=== PATIENT | male | born 1935 | race Caucasian/White ===

== ENCOUNTER → 2016-12-10 | Outpatient (CLI) | payer MEDICARE ==
--- NOTE | 2016-12-10 16:25 | MRI ---
EXAM DESCRIPTION: Brain w/wo Contrast CLINICAL HISTORY: GAIT PROBLEMS. Abnormal gait. Dizziness. Visual disturbances in the right eye. COMPARISON: CT head 10/13/2015. MRI brain 03/21/2012 TECHNIQUE: Pre and postcontrast MRI of the brain is performed according to our usual protocol including multiplanar multi sequence technique. FINDINGS: No hemorrhage, mass effect, diffusion restriction, or acute infarction is present. There is normal configuration of the ventricles and sulci. Moderate generalized volume loss is present. Minimal patchy T2/FLAIR hyperintensities in the supratentorial white matter. There is no abnormal parenchymal or leptomeningeal enhancement. No abnormal extra-axial fluid collections are present. Normal flow voids are present. The calvarium is intact. Trace left mastoid fluid. 1 cm left maxillary mucous retention cyst or polyp. IMPRESSION: 1. No acute intracranial abnormality. 2. Moderate volume loss. 3. Minimal chronic microangiopathy. Electronically signed by: Johnie Schwartz MD 12/10/2016 4:24 PM CDT
== END | disposition home or self-care (01) ==
LOC: MRI 08:20
DX: R26.9 Unspecified abnormalities of gait and mobility (principal); Z79.899 Other long term (current) drug therapy; H53.9 Unspecified visual disturbance

== ENCOUNTER → 2016-12-31 | Outpatient (CLI) | payer MEDICARE | END | disposition home or self-care (01) | LOC: YCHH 09:30 | PROVIDERS: ATTEND Family Medicine | DX: G20 Parkinson's disease (principal); D64.9 Anemia, unspecified; N18.9 Chronic kidney disease, unspecified; E78.5 Hyperlipidemia, unspecified; I12.9 Hypertensive chronic kidney disease with stage 1 through stage 4 chronic kidney disease, or unspecified chronic kidney disease ==

== ENCOUNTER → 2017-06-17 | Outpatient (CLI) | payer MEDICARE | LOC: LAB.O 09:56 | PROVIDERS: ATTEND Family Medicine | DX: N39.0 Urinary tract infection, site not specified (principal) ==

== ENCOUNTER → 2017-07-01 | Outpatient (CLI) | payer MEDICARE | LOC: YCHH 09:16 | PROVIDERS: ATTEND Family Medicine | DX: E78.5 Hyperlipidemia, unspecified (principal); N18.9 Chronic kidney disease, unspecified; D64.9 Anemia, unspecified; G20 Parkinson's disease ==

== ENCOUNTER → 2017-11-15 | Outpatient (CLI) | payer MEDICARE | LOC: YCHH 09:09 | PROVIDERS: ATTEND Family Medicine | DX: I10 Essential (primary) hypertension (principal); R68.89 Other general symptoms and signs ==

== ENCOUNTER 2017-12-25 13:14 | Emergency (ER) | payer MEDICARE ==
--- NOTE | 2017-12-25 15:58 | ED.PDOC ---
History of Present Illness - General Chief Complaint: Skin/Abrasion/Tear Stated Complaint: laceration 5th digit Time Seen by Provider: 12/25/17 15:57 Source: patient Exam Limitations: no limitations - History of Present Illness Initial Comments: Shiv Lilly 82 y/o male brought by toe er after he tried to open and pulled his door he got off balance then slipped and fell landing on his right little finger sustaining laceration.Noted bleeding on his 5th digit.Denies head, neck,shoulder hips ,wrist, elbow pains. Timing/Duration: just prior to arrival Severity: moderate Location: extremities - right hand 5th digit Improving Factors: rest Worsening Factors: movement Associated Symptoms: denies symptoms Allergies/Adverse Reactions: Allergies NO KNOWN ALLERGY Allergy (Verified 10/13/15 09:13) Home Medications: Ambulatory Orders Blood Pressure Pill DAILY 10/13/15 Cephalexin [Keflex] 500 mg PO QID #28 cap 10/13/15 Ginkgo Biloba 30 mg PO DAILY 10/13/15 Wyand[place]-3 Fatty Acids [Fish Oil] 1 cap PO DAILY 10/13/15 Review of Systems - Review of Systems Constitutional: States: no symptoms reported EENTM: States: no symptoms reported Respiratory: States: no symptoms reported Cardiology: States: no symptoms reported Gastrointestinal/Abdominal: States: no symptoms reported Genitourinary: States: no symptoms reported Musculoskeletal: States: no symptoms reported Skin: States: see HPI Neurological: States: no symptoms reported Past Medical History (General) - Patient Medical History Hx Stroke: No Hx Asthma: No Hx Hypertension: Yes Hx Diabetes: No Hx MRSA: No Hx Other PMH: Yes - [place] - Vaccination History Hx Tetanus, Diphtheria Vaccination: No Hx Influenza Vaccination: Yes Hx Pneumococcal Vaccination: No - Social History Hx Tobacco Use: No Family Medical History - Family History Father Family History: Unknown Living Status: Physical Exam - Physical Exam General Appearance: Alert, Comfortable, No apparent distress Eyes, Ears, Nose, Throat Exam: PERRL/EOMI, normal ENT inspection Neck: non-tender, full range of motion, supple, normal inspection Cardiovascular/Chest: normal peripheral pulses, regular rate, rhythm, no murmur Respiratory: chest non-tender, lungs clear, normal breath sounds, no respiratory distress Gastrointestinal/Abdominal: normal bowel sounds, non tender, soft, no organomegaly Back Exam: normal inspection, no CVA tenderness Extremity: no pedal edema, no calf tenderness Neurologic: no motor/sensory deficits, alert, oriented x 3 Skin Exam: warm/dry, normal color Skin Problem Location: upper extremities - right 5th digit Skin Character: other - laceration U shaped volar aspect extending to ulnar side of finger Progress - Progress Progress: 12/25/17 16:55 Vital Signs - 8 hr 12/25/17 13:34 Temperature 97.5 F L Pulse Rate [ 79 left brachial] Respiratory 20 Rate Blood Pressure 159/91 [right brachial ] O2 Sat by Pulse 96 Oximetry 12/25/17 17:07 Declined x- ray on his finger wants to go home. Procedures - Laceration/Wound Repair Right Volar Finger Wound Length (cm): 4 - 5th digit Wound's Depth, Shape: flap Wound Explored: no foreign body removed Irrigated w/ Saline (cc's): 30 Betadine Prep?: No - hibiclens Anesthesia: 1% Lidocaine Volume Anesthetic (cc's): 8 Wound Repaired With: sutures Suture Size/Type: 4:0, nylon Number of Sutures: 9 Layer Closure?: No Sterile Dressing Applied?: Yes Departure - Departure Clinical Impression: Fall at home Qualifiers: Encounter type: initial encounter Qualified Code(s): W19.XXXA - Unspecified fall, initial encounter Laceration of finger of right hand without foreign body Qualifiers: Encounter type: initial encounter Finger: little finger Damage to nail status: without damage Qualified Code(s): S61.216A - Laceration without foreign body of right little finger without damage to nail, initial encounter Time of Disposition: 16:58 Disposition: Discharge to Home or Self Care Condition: Fair Departure Forms: ED Discharge - Pt. Copy, Patient Portal Self Enrollment Instructions: Wound Care (DC), Laceration Repair With Stitches (DC), Common Finger Injuries (DC) Referrals: Marko Moy MD [Primary Care Provider] - 1-2 Weeks Home Medications: Ambulatory Orders Blood Pressure Pill DAILY 10/13/15 Cephalexin [Keflex] 500 mg PO QID #28 cap 10/13/15 Ginkgo Biloba 30 mg PO DAILY 10/13/15 Wy[place]-3 Fatty Acids [Fish Oil] 1 cap PO DAILY 10/13/15 Additional Instructions: Removal of sutures 2017 [facility] ER replaced wound dressing after 5 days unless it gets wet or dirty need to change VIRGIE;Return to er as needed
[2017-12-25] MEDS ORDERED: CHLORHEXIDINE GLUCONATE 4 % 15 ML UD TOP ONE (16:01)
[2017-12-25] MEDS ORDERED: LIDOCAINE 1% 10 ML VIAL INJ ONE (16:01)
[2017-12-25] MEDS ORDERED: TETANUS,DIPHTHERIA,PERTUSSIS 1 EA SYG IM ONE (16:03)
[2017-12-25] MEDS ORDERED: NEOMYCIN-BACITRACIN-POLYMYXIN 0.9 GM UD TOP ONE (16:38)
[2017-12-25 17:45] VITALS: BP 146/84; TEMP 97; O2SAT 97
== END 2017-12-25 17:20 | disposition home or self-care (01) ==
LOC: ER 13:14
DX: S61.216A Laceration without foreign body of right little finger without damage to nail, initial encounter (principal); G20 Parkinson's disease; I10 Essential (primary) hypertension; Z23 Encounter for immunization; Z79.899 Other long term (current) drug therapy; W01.0XXA Fall on same level from slipping, tripping and stumbling without subsequent striking against object, initial encounter; Y92.009 Unspecified place in unspecified non-institutional (private) residence as the place of occurrence of the external cause

== ENCOUNTER → 2018-02-21 | Outpatient (CLI) | payer MEDICARE | LOC: YCHH 09:58 | PROVIDERS: ATTEND Family Medicine | DX: E78.2 Mixed hyperlipidemia (principal); R79.89 Other specified abnormal findings of blood chemistry; D64.9 Anemia, unspecified ==

== ENCOUNTER → 2018-05-30 | Outpatient (CLI) | payer MEDICARE | LOC: GMAH 10:42 | PROVIDERS: ATTEND Family Medicine | DX: I10 Essential (primary) hypertension (principal); Z12.5 Encounter for screening for malignant neoplasm of prostate | CPT/HCPCS: 84443; 84550; G0103 ==

== ENCOUNTER 2018-07-05 15:05 | Emergency (ER) | payer MEDICARE ==
[2018-07-05] MEDS ORDERED: CHLORHEXIDINE GLUCONATE 4 % 15 ML UD TOP ONE (15:21)
[2018-07-05] MEDS ORDERED: LIDOCAINE 1% 10 ML VIAL INJ ONE (15:21)
[2018-07-05] MEDS ORDERED: NEOMYCIN-BACITRACIN-POLYMYXIN 0.9 GM UD TOP ONE (15:56)
[2018-07-05] MEDS ORDERED: AMOXICILLIN & POT CLAVULANATE 875 MG TAB PO ONE (15:59)
--- NOTE | 2018-07-05 16:02 | ED.PDOC ---
History of Present Illness - General Chief Complaint: Upper Extremity Injury Stated Complaint: laceration to right 5th finger Time Seen by Provider: 07/05/18 15:26 Source: patient, family Exam Limitations: no limitations - History of Present Illness Initial Comments: PT PRESENTS WITH LACERATION TO THE RIGHT 5TH DIGIT AFTER GRABBING ONTO A DOOR HANDLE TO KEEP FROM FALLING. Occurred: just prior to arrival Pain - Upper Extremity: mild: Hand, right Method of Injury: other - LACERATION Improving Factors: nothing Worsening Factors: nothing Allergies/Adverse Reactions: Allergies NO KNOWN ALLERGY Allergy (Verified 07/05/18 15:25) Home Medications: Ambulatory Orders Edwards-3 Fatty Acids [Fish Oil] 1 cap PO DAILY 10/13/15 Amoxicillin & Pot Clavulanate [Augmentin] 875 mg PO BID 5 Days #10 tab 07/05/18 Carbidopa-Levodopa [Sinemet] 1 tab PO TID 07/05/18 Cyanocobalamin [Vitamin B12] 1,000 mcg PO DAILY 07/05/18 Lisinopril 10 mg PO DAILY 07/05/18 Magnesium Hydroxide [Milk Of Magnesia] 30 ml PO PRN PRN 07/05/18 Multiple Vitamin [Multi Vitamin] 1 tab PO DAILY 07/05/18 Review of Systems - Review of Systems Constitutional: Denies: chills, fever Cardiology: Denies: chest pain, syncope Gastrointestinal/Abdominal: Denies: nausea, vomiting Musculoskeletal: Denies: joint pain, joint swelling Past Medical History (General) - Patient Medical History Hx Stroke: No Hx Asthma: No Hx Hypertension: Yes Hx Diabetes: No Hx MRSA: No Surgical History: appendectomy - Vaccination History Hx Tetanus, Diphtheria Vaccination: Yes Hx Influenza Vaccination: Yes Hx Pneumococcal Vaccination: Yes Immunizations Up to Date: Yes - Social History Hx Tobacco Use: No Hx Alcohol Use: No Hx Substance Use: No Hx Substance Use Treatment: No Hx Depression: No Family Medical History - Family History Father Family History: Unknown Living Status: Physical Exam - Physical Exam General Appearance: Alert, No apparent distress, Well Developed, Well Groomed, Well Hydrated Eyes, Ears, Nose, Throat Exam: normal ENT inspection Cardiovascular/Respiratory: no respiratory distress Elbow/Forearm Exam: normal inspection, non-tender, no evidence of injury Wrist Exam: normal inspection, non-tender, no evidence of injury Hand Exam: laceration - L SHAPED, 4.5CM LACERATION TO THE VOLAR ASPECT OF THE RIGHT 5TH DIGIT. EXTENSOR AND FLEXOR TENDON FUNCTION INTACT. NV INTACT DISTALLY. Neuro/Tendon: normal sensation, normal motor functions, normal tendon functions, responds to pain Mental Status: alert Skin Exam: normal color, warm/dry Procedures - Laceration/Wound Repair Right Finger Wound Length (cm): 4.5 Wound's Depth, Shape: flap Wound Explored: clean Irrigated w/ Saline (cc's): 250 Betadine Prep?: Yes Anesthesia: 1% Lidocaine Volume Anesthetic (cc's): 3 - DIGITAL BLOCK Wound Repaired With: sutures Suture Size/Type: 4:0, prolene Number of Sutures: 8 Layer Closure?: No Splint Applied?: Yes - ALUMINUM FINGER SPLINT Departure - Departure Clinical Impression: Laceration of finger of right hand without foreign body Time of Disposition: 16:05 Disposition: Discharge to Home or Self Care Condition: Good Departure Forms: ED Discharge - Pt. Copy, Patient Portal Self Enrollment Instructions: Laceration Repair With Stitches (DC), Common Finger Injuries (DC) Referrals: Marko Moy MD [Primary Care Provider] - 1 Week Prescriptions: Amoxicillin & Pot Clavulanate [Augmentin] 875 mg PO BID 5 Days #10 tab Home Medications: Ambulatory Orders Edwards-3 Fatty Acids [Fish Oil] 1 cap PO DAILY 10/13/15 Amoxicillin & Pot Clavulanate [Augmentin] 875 mg PO BID 5 Days #10 tab 07/05/18 Carbidopa-Levodopa [Sinemet] 1 tab PO TID 07/05/18 Cyanocobalamin [Vitamin B12] 1,000 mcg PO DAILY 07/05/18 Lisinopril 10 mg PO DAILY 07/05/18 Magnesium Hydroxide [Milk Of Magnesia] 30 ml PO PRN PRN 07/05/18 Multiple Vitamin [Multi Vitamin] 1 tab PO DAILY 07/05/18 Additional Instructions: RETURN TO ED OR PCP IN 7-10 DAYS FOR SUTURE REMOVAL.
[2018-07-05 16:26] VITALS: BP 116/72; TEMP 95.2; O2SAT 95
== END 2018-07-05 16:20 | disposition home or self-care (01) ==
LOC: ER 15:05
DX: S61.216A Laceration without foreign body of right little finger without damage to nail, initial encounter (principal); I10 Essential (primary) hypertension; W45.8XXA Other foreign body or object entering through skin, initial encounter; Y92.9 Unspecified place or not applicable

== ENCOUNTER → 2018-08-23 | Outpatient (CLI) | payer MEDICARE | LOC: YCHH 09:23 | PROVIDERS: ATTEND Family Medicine | DX: N18.9 Chronic kidney disease, unspecified (principal); D64.9 Anemia, unspecified ==

== ENCOUNTER → 2018-11-28 | Outpatient (CLI) | payer MEDICARE | LOC: YCHH 09:12 | PROVIDERS: ATTEND Family Medicine | DX: G20 Parkinson's disease (principal); R79.89 Other specified abnormal findings of blood chemistry; E78.5 Hyperlipidemia, unspecified; R94.5 Abnormal results of liver function studies; D64.9 Anemia, unspecified ==

== ENCOUNTER → 2019-04-12 | Outpatient (CLI) | payer MEDICARE, OTHER | LOC: YCHH 09:42 | PROVIDERS: ATTEND Family Medicine | DX: N18.9 Chronic kidney disease, unspecified (principal); E78.5 Hyperlipidemia, unspecified; K74.60 Unspecified cirrhosis of liver; D64.9 Anemia, unspecified ==

== ENCOUNTER 2019-05-20 14:45 | Emergency (ER) | payer OTHER ==
[2019-05-20] MEDS ORDERED: SODIUM CHLORIDE 0.9% (FLUSH) 10 ML SYG IV PRN ×2 (15:05→15:07)
[2019-05-20] MEDS ORDERED: SODIUM CHLORIDE 0.9% 1000ML 1,000 ML IVS ONE ×2 (15:29→18:21)
--- NOTE | 2019-05-20 16:08 | RAD ---
EXAM DESCRIPTION: XR Chest,1 View CLINICAL HISTORY: sob TECHNIQUE: Single frontal view of the chest is submitted. COMPARISON: None available for comparison FINDINGS: Heart: The cardiothoracic silhouette is borderline prominent. Lungs: Central pulmonary vascular and interstitial prominence and patchy bilateral perihilar and basilar opacities. Mediastinum: Thoracic aortic atherosclerosis. Calcified mediastinal and hilar lymph nodes. Pleura: No appreciable effusion. No pneumothorax. Bones: Mild multilevel spondylosis. Well-corticated deformity and shortening of the distal left clavicle possibly posttraumatic and/or postsurgical. Upper abdomen: Unremarkable IMPRESSION: Findings which may be related to pulmonary congestion. Superimposed infection not excluded. Electronically signed by: Kati Silver MD 05/20/2019 4:06 PM ORGANIZATIONAL PSYCHOLOGIST
--- NOTE | 2019-05-20 16:38 | ED.PDOC ---
History of Present Illness - General Chief Complaint: General Stated Complaint: Generalized weakness and SOB x one month Time Seen by Provider: 05/20/19 15:04 - History of Present Illness Initial Comments: c/o generalized weakness for few weeks associated with some sob , gradually getting worse , unable to get out of bed today so was brought over here , no chest pain or palpitation or focal weakness Improving Factors: nothing Worsening Factors: nothing Associated Symptoms: weakness Allergies/Adverse Reactions: Allergies NO KNOWN ALLERGY Allergy (Verified 07/05/18 15:25) Home Medications: Ambulatory Orders Arpin-3 Fatty Acids [Fish Oil] 1 cap PO DAILY 10/13/15 Amoxicillin & Pot Clavulanate [Augmentin] 875 mg PO BID 5 Days #10 tab 07/05/18 Carbidopa-Levodopa [Sinemet] 1 tab PO TID 07/05/18 Cyanocobalamin [Vitamin B12] 1,000 mcg PO DAILY 07/05/18 Lisinopril 10 mg PO DAILY 07/05/18 Magnesium Hydroxide [Milk Of Magnesia] 30 ml PO PRN PRN 07/05/18 Multiple Vitamin [Multi Vitamin] 1 tab PO DAILY 07/05/18 Review of Systems - Review of Systems Constitutional: States: see HPI, weakness EENTM: States: no symptoms reported Respiratory: States: short of breath Cardiology: States: no symptoms reported Gastrointestinal/Abdominal: States: no symptoms reported Genitourinary: States: no symptoms reported Musculoskeletal: States: no symptoms reported Skin: States: no symptoms reported Neurological: States: weakness Endocrine: States: no symptoms reported Hematologic/Lymphatic: States: no symptoms reported Past Medical History (General) - Patient Medical History Hx Stroke: No Hx Asthma: No Hx of COPD: No Hx Cardiac Disorders: Yes - Murmur Hx Congestive Heart Failure: No Hx Hypertension: Yes Hx Diabetes: No Hx MRSA: No Surgical History: appendectomy, tonsillectomy - Vaccination History Hx Tetanus, Diphtheria Vaccination: Yes Hx Influenza Vaccination: Yes Hx Pneumococcal Vaccination: Yes - Social History Hx Tobacco Use: Yes Hx Alcohol Use: No Hx Substance Use: No Hx Substance Use Treatment: No Hx Depression: No - Female History Patient is a Female of Child Bearing Age (10 -59 yrs old): No Patient : No Family Medical History - Family History Father Family History: Unknown Living Status: Physical Exam - Physical Exam General Appearance: Alert, Comfortable Eye Exam: bilateral normal Ears, Nose, Throat: hearing grossly normal, normal ENT inspection, normal pharynx Neck: non-tender, full range of motion, supple Respiratory: chest non-tender, lungs clear, normal breath sounds, no respiratory distress, no accessory muscle use Cardiovascular/Chest: regular rate, rhythm Back Exam: normal inspection, no CVA tenderness, no vertebral tenderness Extremity: normal range of motion, non-tender, normal inspection Neurologic: worker's compensation claims examiner II-XII nml as tested, no motor/sensory deficits, alert, normal mood/affect, oriented x 3 Skin Exam: normal color, warm/dry Progress - Progress Progress: 05/22/19 19:[address] Damon ER physician at [facility] , agreed to take the pt ,and requested to pass central line Central line was attempted once without any complication but not able to pass the line , no bleeding or any complication , air transport already here Pt X-ray was done and showed Pulmonary edema at the time of transfer , EMS assure to give lasix [address] to [address] hospital. Pt was transferrred to the hospital in stable condition with stable blood pressure - Results/Orders Results/Orders: 05/20/19 15:05 Head [CT] Stat Sodium Chloride 0.9% (Flush) [Saline Flush Syringe] 10 ml IV PRN PRN 05/20/19 15:07 Hold Metformin x 48Hrs [id number] Abdomen/Pelvis w/Contrast [CT] Stat Sodium Chloride 0.9% (Flush) [Saline Flush Syringe] 10 ml IV PRN PRN URINALYSIS Stat 05/20/19 15:15 EKG STAT 05/20/19 16:34 LACTIC ACID Stat Laboratory Results WBC 16.4 K/mm3 (4.8-10.8) H 05/20/19 15:05 RBC 4.90 M/mm3 (4.70-6.10) 05/20/19 15:05 Hgb 15.3 gm/dL (14.0-18.0) 05/20/19 15:05 Hct 46.0 % (42.0-52.0) 05/20/19 15:05 MCV 93.9 fl (80.0-94.0) 05/20/19 15:05 MCH 31.2 pg (27.0-31.0) H 05/20/19 15:05 MCHC 33.2 g/dL (33.0-37.0) 05/20/19 15:05 RDW 14.3 % (11.5-14.5) 05/20/19 15:05 Plt Count 263 K/mm3 (130-400) 05/20/19 15:05 MPV 9.2 fl (7.40-10.4) 05/20/19 15:05 Absolute Neuts (auto) 14.20 K/uL (1.8-6.8) H 05/20/19 15:05 Absolute Lymphs (auto) 1.20 K/uL (1.0-3.4) 05/20/19 15:05 Absolute Monos (auto) 0.90 K/uL (0.2-0.8) H 05/20/19 15:05 Absolute Eos (auto) 0.00 K/uL (0.0-0.4) 05/20/19 15:05 Absolute Basos (auto) 0.10 K/uL (0.0-0.1) 05/20/19 15:05 Neutrophils % 86.6 % (42.0-78.0) H 05/20/19 15:05 Lymphocytes % 7.2 % (20.0-50.0) L 05/20/19 15:05 Monocytes % 5.4 % (2.0-9.0) 05/20/19 15:05 Eosinophils % 0.2 % (1.0-5.0) L 05/20/19 15:05 Basophils % 0.6 % (0.0-2.0) 05/20/19 15:05 Sodium 133 mmol/L (135-145) L 05/20/19 15:05 Potassium 3.9 mmol/L (3.6-5.0) 05/20/19 15:05 Chloride 98 mmol/L (101-111) L 05/20/19 15:05 Carbon Dioxide 23 mmol/L (21-31) 05/20/19 15:05 Anion Gap 15.9 (12-18) 05/20/19 15:05 BUN 34 mg/dL (7-18) H 05/20/19 15:05 Creatinine 1.17 mg/dL (0.6-1.3) 05/20/19 15:05 BUN/Creatinine Ratio 29.1 (10-20) H 05/20/19 15:05 Random Glucose 114 mg/dL (70-105) H 05/20/19 15:05 Serum Osmolality 274.9 mOsm/L (275-295) L 05/20/19 15:05 Calcium 9.2 mg/dL (8.4-10.2) 05/20/19 15:05 Total Bilirubin 1.3 mg/dL (0.2-1.0) H 05/20/19 15:05 AST 213 IU/L (10-42) H 05/20/19 15:05 ALT 21 IU/L (10-60) 05/20/19 15:05 Alkaline Phosphatase 57 IU/L (42-121) 05/20/19 15:05 Creatine Kinase 1260 IU/L (38-174) H* 05/20/19 15:05 CK-MB (CK-2) 116.8 ng/mL (0.0-4.4) H* 05/20/19 15:05 CK-MB (CK-2) % 9.27 % (0.0-3.5) H 05/20/19 15:05 Troponin I 30.22 ng/mL (0.01-0.05) H* 05/20/19 15:05 Serum Total Protein 7.1 gm/dL (6.4-8.2) 05/20/19 15:05 Albumin 3.7 g/dl (3.2-5.5) 05/20/19 15:05 Globulin 3.4 gm/dL (2.3-3.5) 05/20/19 15:05 Albumin/Globulin Ratio 1.1 (1.1-1.9) 05/20/19 15:05 Lipase 30 U/L (22-51) 05/20/19 15:07 - EKG/XRAY/CT EKG: Sinus Comments: Early repolarization CT Ordered: Yes - Additional EKG/XRAY/Consults EKG #2: LBBB Departure - Departure Clinical Impression: Left bundle branch block (LBBB), Hypotension, Pneumonia, Pulmonary edema, Hypoxemia Disposition: Transfer to Hospital Condition: Serious Departure Forms: ED Discharge - Pt. Copy, Patient Portal Self Enrollment Referrals: Reinier Teran MD [Primary Care Provider] - 1-2 Weeks Home Medications: Ambulatory Orders Arpin-3 Fatty Acids [Fish Oil] 1 cap PO DAILY 10/13/15 Amoxicillin & Pot Clavulanate [Augmentin] 875 mg PO BID 5 Days #10 tab 07/05/18 Carbidopa-Levodopa [Sinemet] 1 tab PO TID 07/05/18 Cyanocobalamin [Vitamin B12] 1,000 mcg PO DAILY 07/05/18 Lisinopril 10 mg PO DAILY 07/05/18 Magnesium Hydroxide [Milk Of Magnesia] 30 ml PO PRN PRN 07/05/18 Multiple Vitamin [Multi Vitamin] 1 tab PO DAILY 07/05/18
[2019-05-20] MEDS ORDERED: ASPIRIN TABLET 325 MG TAB PO ONE (16:43)
--- NOTE | 2019-05-20 16:50 | CT ---
EXAM DESCRIPTION: Head CLINICAL HISTORY: weakness COMPARISON: None Available. TECHNIQUE: Contiguous axial images of the brain were obtained without the administration of intravenous contrast.This exam was performed according to our departmental dose-optimization program, which includes automated exposure control, adjustment of the mA and/or kV according to patient size and/or use of iterative reconstruction technique. FINDINGS: Several images are degraded by artifact. There is no acute intracranial hemorrhage or mass effect. Areas of low attenuation in the periventricular and subcortical white matter are nonspecific but suggestive of small vessel disease. There is generalized atrophy. Ventricular system is within normal limits. There is adequate fung-white matter differentiation. There is no skull fracture. The visualized paranasal sinuses and mastoid air cells are within normal limits. There is atherosclerosis. Filling defect within the right external ear canal may represent cerumen, direct visualization recommended. IMPRESSION: No acute intracranial abnormalities. Electronically signed by: Juan A Oviedo MD 05/20/2019 4:48 PM [facility]
[2019-05-20] MEDS ORDERED: levoFLOXacin 500MG IV 500 MG in PREMIX BAG 1 BAG IVPB ONE (16:56)
--- NOTE | 2019-05-20 17:00 | CT ---
PROCEDURE: Abdomen/Pelvis w/Contrast CLINICAL HISTORY: abdominal pain TECHNIQUE: Contiguous axial images obtained through the abdomen and pelvis without IV contrast. Coronal and sagittal reformatted images were provided. This exam was performed according to our departmental dose-optimization program, which includes automated exposure control, adjustment of the mA and/or kV according to patient size and/or use of iterative reconstruction technique. COMPARISON: None available for comparison. FINDINGS: Artifacts: Motion artifact degrades image quality. Lung bases: Right greater than left basilar reticular nodular and groundglass opacities. The heart is enlarged. Coronary artery calcification. Small pericardial effusion. Liver: Unremarkable Gallbladder and biliary system: Unremarkable Pancreas: Unremarkable Spleen: Unremarkable Adrenals: Unremarkable Kidneys: Normal renal cortical enhancement. 1.4 cm cortical hypodensity at the anterior mid pole on the left. The density is mildly higher than that of a simple cyst and this may represent a hemorrhagic or proteinaceous cyst.. 1 cm cortical hypodensity at the lateral midpole on the right which cannot be fully characterized. No calculi. No hydronephrosis. Bowel: There are multiple mildly dilated small bowel loops. The course of the small bowel is difficult to follow in its entirety. Suggestion for a transition within the central mesentery. The mesentery appears twisted in this region. Fecal loading within the rectal vault. Scattered colonic diverticula without definite focally inflamed diverticulum. Appendix: The appendix is not definitively visualized. No findings to suggest acute appendicitis. Urinary bladder: Distended Reproductive: Radiation seeds in place. Lymph nodes: Top normal mesenteric lymph nodes measuring up to 11 mm in short axis. Peritoneum: Free air present within the abdomen, predominantly nondependent. No focal fluid collection. Vessels: Moderate atherosclerotic disease. The infrarenal abdominal aorta measures 3.9 cm in maximum diameter. Abdominal wall: Small bilateral fat-containing inguinal hernias. Bones: Multilevel spondylosis. No acute fracture. IMPRESSION: 1. Free air compatible with visceral perforation. The exact site is not clearly delineated. There are multiple mildly dilated small bowel loops with suggestion for a transition in the central mesentery suggestive of small bowel obstruction. The mesentery appears twisted in this location and findings are suspicious for underlying volvulus or internal hernia. 2. 3.9 cm abdominal aortic aneurysm. Recommend follow-up every 2 years. Reference: J Am Sweetie Radiol 2013;10:789-794. 3. Right greater than left basilar infiltrates. 4. Other findings as above. THIS REPORT CONTAINS FINDINGS THAT MAY BE CRITICAL TO PATIENT CARE: The findings were verbally discussed via telephone conference with Dr. Santosh GU on 05/20/2019 4:57 PM GLASS BEVELER. The results were acknowledged and understood. Electronically signed by: Kati Silver MD 05/20/2019 4:58 PM GLASS BEVELER
[2019-05-20] MEDS ORDERED: levoFLOXacin 500MG IV 100 ML IVPB ONE (17:10)
[2019-05-20] MEDS ORDERED: PIPERACILLIN/TAZOBACTAM 4.5 GM in SODIUM CHLORIDE 0.9% 100ML 100 ML IVPB ONE (18:08)
[2019-05-20] MEDS ORDERED: PIPERACILLIN/TAZOBACTAM 2.25 GM VIAL IVPB ONE (18:10)
[2019-05-20] MEDS ORDERED: SODIUM CHLORIDE 0.9% 100ML 100 ML IVPB ONE (18:10)
--- NOTE | 2019-05-20 18:53 | RAD ---
EXAM DESCRIPTION: Chest x-ray,1 View CLINICAL HISTORY: sob COMPARISON: Same day earlier time CT abdomen and pelvis FINDINGS: Indistinctness of the pulmonary vessels is a new finding when compared with the prior examination and compatible with pulmonary edema. Skin folds project over the left chest. EKG leads project over the chest. Pneumoperitoneum Cardiac silhouette is within normal limits. There is no focal parenchymal or pleural disease. There is no acute osseous process visualized. IMPRESSION: Indistinctness of the pulmonary vessels is a new finding when compared with the prior examination and compatible with pulmonary edema. Pneumoperitoneum again visualized. Electronically signed by: Juan A Oviedo MD 05/20/2019 6:52 PM ENERGY CONSERVATION DIRECTOR
[2019-05-20 18:58] VITALS: O2SAT 93
[2019-05-20 19:11] VITALS: BP 123/61; TEMP 99.2
== END 2019-05-20 17:00 | disposition short-term general hospital (02) ==
LOC: ER 14:45
DX: J18.9 Pneumonia, unspecified organism (principal); I44.7 Left bundle-branch block, unspecified; I95.9 Hypotension, unspecified; R09.02 Hypoxemia; J81.1 Chronic pulmonary edema; R01.1 Cardiac murmur, unspecified; I10 Essential (primary) hypertension; Z87.891 Personal history of nicotine dependence; Z79.899 Other long term (current) drug therapy
CPT/HCPCS: 70450; 71045; 74177; 80053; 82550; 82553; 83605; 83690; 84484; 85025; 87040; 87502; 93005; J1956; J2543; J7030; J7050

== ENCOUNTER → 2019-08-03 | Outpatient (CLI) | payer MEDICARE, OTHER | LOC: BFHH 13:22 | PROVIDERS: ATTEND Family Medicine | DX: N39.0 Urinary tract infection, site not specified (principal) ==